=== PATIENT | male | born 1985 | race Caucasian/White ===

== ENCOUNTER 2019-01-05 01:30 | Emergency (ER) | payer BC ==
[~2019-01-05] VITALS: Ht 175.3 cm; Wt 74.8 kg
[~2019-01-05 01:30] MED LIST: LITHIUM CARBON300 M6; RISPERDAL2 MG; TRAZODONE
[2019-01-05] MEDS ORDERED: CELEXA20 MG PO (01:47)
[2019-01-05] MEDS ORDERED: VALIUM5 MG PO (01:47)
[2019-01-05] MEDS ORDERED: CELEXA40 MG PO (01:47)
[2019-01-05 02:49] LABS: CALCIUM 8.7 mg/dL (8.5-10.1); CREATININE 0.7 mg/dL (0.6-1.3)
[2019-01-05 02:57] LABS: POTASSIUM 2.9 mmol/L (3.5-5.1)
[2019-01-05] MEDS ORDERED: POTASSIUM20 PO (03:35)
[2019-01-05 03:59] VITALS: BP 152/85
--- NOTE | 2019-01-07 09:28 | EKG ---
[place] [address] ELECTROCARDIOGRAM REPORT Name: KRISTOPHERROSIE CONLEY KIKIHEDY Room: [facility]#: [id number] Admission: 01/05/19 Attend Phys: Discharge: 01/05/19 Date of : 83 Report #: [id number] THIS REPORT FOR: //name// [facility] ED Test Date: 2019-01-05 Test Time: 03:12:57 Pat Name: ROSIE SUMMERS Department: Room: Gender: M Sales Coach: : 1985 Requested By: Abebe Balderas Order Number: [id number] MD: Chris Plascencia Measurements Intervals [place] Rate: 58 P: 67 TN: 163 QRS: 51 QRSD: 120 T: 42 QT: 453 QTc: 445 Interpretive Statements Sinus rhythm Atrial premature complex Compared to ECG 12/07/2014 19:56:13 Atrial premature complex(es) now present Sinus tachycardia no longer present Electronically Signed On 01-07-2019 9:28:21 CDT by Chris Plascencia [email or web address] <ELECTRONICALLY SIGNED> By: Chris Plascencia MD, [facility] 01/07/19 0928 1 1 Chris Plascencia MD, FACC /EPI
== END 2019-01-05 04:00 | disposition home or self-care (01) ==
LOC: M.ERS 01:30
PROVIDERS: Emergency Medicine Emergency Medical Services
DX: R25.2 Cramp and spasm (principal); E86.0 Dehydration; F31.9 Bipolar disorder, unspecified; Z87.891 Personal history of nicotine dependence; Z88.2 Allergy status to sulfonamides

== ENCOUNTER 2019-11-01 13:44 | Emergency (ER) | payer BC ==
[~2019-11-01] VITALS: Ht 175.3 cm; Wt 76.2 kg
[~2019-11-01 13:44] MED LIST changes: +CELEXA20 MG PO; +CELEXA40 MG PO; +POTASSIUM20 PO; +VALIUM5 MG PO
[2019-11-01] MEDS ORDERED: MEDICAL MARIJUANA (13:59)
[2019-11-01 14:32] LABS: ABSOLUTE BASOPHILS 0.1 thou/uL (0.0-0.2); ABSOLUTE EOSINOPHILS 0.1 thou/uL (0.0-0.7); ABSOLUTE LYMPHOCYTES 2.3 thou/uL (0.8-5.3); ABSOLUTE NEUTROPHILS 5.9 thou/uL (1.6-8.1); BASOPHILS 0.5 %; EOSINOPHILS 0.6 %; HEMATOCRIT 43.9 % (42.0-52.0); HEMOGLOBIN 15.3 gm/dL (14.0-18.0); LYMPHOCYTES 24.8 %; MCHC 34.7 g/dL (28.0-37.0); MCV 89.1 fL (80.0-100.0); MONOCYTES 11.1 %; NUCLEATED RBCS 0 /100WBC; PLATELET COUNT* 216 thou/uL (150-400); RBC 4.93 mil/uL (4.50-6.00); RDW-CV 13.1 % (10.5-14.5); WBC 9.4 thou/uL (4.0-11.0)
[2019-11-01 14:39] LABS: CALCIUM 8.6 mg/dL (8.5-10.1); CREATININE 0.9 mg/dL (0.6-1.3); POTASSIUM 3.6 mmol/L (3.5-5.1)
[2019-11-01 14:43] LABS: ALBUMIN 4.2 g/dL (3.4-5.0); TOTAL BILIRUBIN 0.8 mg/dL (<0.1-1.0); TOTAL PROTEIN 8.2 g/dL (6.4-8.2)
[2019-11-01 17:06] VITALS: BP 132/88
== END 2019-11-01 17:07 | disposition home or self-care (01) ==
LOC: M.ERS 13:44
PROVIDERS: Personal Emergency Response Attendant
DX: R74.8 Abnormal levels of other serum enzymes (principal); E86.0 Dehydration; F31.9 Bipolar disorder, unspecified; Z88.2 Allergy status to sulfonamides

== ENCOUNTER 2019-11-16 09:46 | Emergency (ER) | payer BC ==
[~2019-11-16] VITALS: Ht 175.3 cm; Wt 77.1 kg
[~2019-11-16 09:46] MED LIST changes: +MEDICAL MARIJUANA
[2019-11-16] MEDS ORDERED: NORCO 5-325 TA1 EAC1 PO (10:08)
[2019-11-16 10:17] VITALS: BP 107/77
== END 2019-11-16 10:17 | disposition home or self-care (01) ==
LOC: M.ERS 09:46
DX: S61.521A Laceration with foreign body of right wrist, initial encounter (principal); S61.511A Laceration without foreign body of right wrist, initial encounter; F31.9 Bipolar disorder, unspecified; Z90.49 Acquired absence of other specified parts of digestive tract; Z98.84 Bariatric surgery status; Z88.2 Allergy status to sulfonamides; Z79.899 Other long term (current) drug therapy; W25.XXXA Contact with sharp glass, initial encounter; Y93.89 Activity, other specified; Y92.89 Other specified places as the place of occurrence of the external cause; Y99.8 Other external cause status

== ENCOUNTER 2019-12-20 12:23 | Emergency (ER) | payer BC ==
[~2019-12-20] VITALS: Ht 175.3 cm; Wt 77.1 kg
[~2019-12-20 12:23] MED LIST changes: +NORCO 5-325 TA1 EAC1 PO
[2019-12-20 13:50] LABS: ABSOLUTE BASOPHILS 0.1 thou/uL (0.0-0.2); ABSOLUTE EOSINOPHILS 0.1 thou/uL (0.0-0.7); ABSOLUTE LYMPHOCYTES 1.8 thou/uL (0.8-5.3); ABSOLUTE MONOCYTES 0.5 thou/uL (0.0-1.2); ABSOLUTE NEUTROPHILS 5.7 thou/uL (1.6-8.1); BASOPHILS 0.9 %; EOSINOPHILS 1.1 %; HEMATOCRIT 38.3 % (42.0-52.0); HEMOGLOBIN 13.3 gm/dL (14.0-18.0); LYMPHOCYTES 22.2 %; MCHC 34.7 g/dL (28.0-37.0); MCV 92.1 fL (80.0-100.0); MONOCYTES 6.4 %; MPV 8.5 fl. (7.2-11.1); NUCLEATED RBCS 0 /100WBC; PLATELET COUNT* 157 thou/uL (150-400); POLYS 69.4 %; RBC 4.16 mil/uL (4.50-6.00); RDW-CV 14.7 % (10.5-14.5); WBC 8.2 thou/uL (4.0-11.0)
[2019-12-20 13:59] LABS: APTT 26.4 Seconds (25.0-31.3); INR 1.2; PROTIME 12.6 Seconds (9.20-11.50)
[2019-12-20 14:04] LABS: CALCIUM 7.6 mg/dL (8.5-10.1); CREATININE 0.8 mg/dL (0.6-1.3); POTASSIUM 3.6 mmol/L (3.5-5.1); TOTAL BILIRUBIN 0.4 mg/dL (<0.1-1.0)
[2019-12-20] MEDS ORDERED: KEFLEX500 M1 PO (14:19)
[2019-12-20 14:31] VITALS: BP 152/94
== END 2019-12-20 14:32 | disposition home or self-care (01) ==
LOC: M.ERS 12:23
PROVIDERS: Physician Assistant
DX: S60.851A Superficial foreign body of right wrist, initial encounter (principal); F10.10 Alcohol abuse, uncomplicated; Y90.9 Presence of alcohol in blood, level not specified; Z90.49 Acquired absence of other specified parts of digestive tract; Z87.891 Personal history of nicotine dependence; Z79.899 Other long term (current) drug therapy; Z88.2 Allergy status to sulfonamides; X58.XXXA Exposure to other specified factors, initial encounter; Y93.89 Activity, other specified; Y92.89 Other specified places as the place of occurrence of the external cause; Y99.8 Other external cause status

== ENCOUNTER 2019-12-27 10:38 | Emergency (ER) | payer BC ==
[~2019-12-27] VITALS: Ht 175.3 cm; Wt 77.1 kg
[~2019-12-27 10:38] MED LIST changes: +KEFLEX500 M1 PO
[2019-12-27 11:36] LABS: ABSOLUTE BASOPHILS 0.1 thou/uL (0.0-0.2); ABSOLUTE EOSINOPHILS 0.1 thou/uL (0.0-0.7); ABSOLUTE LYMPHOCYTES 1.4 thou/uL (0.8-5.3); ABSOLUTE MONOCYTES 0.6 thou/uL (0.0-1.2); ABSOLUTE NEUTROPHILS 2.5 thou/uL (1.6-8.1); BASOPHILS 2.1 %; EOSINOPHILS 2.1 %; HEMATOCRIT 41.7 % (42.0-52.0); HEMOGLOBIN 14.3 gm/dL (14.0-18.0); LYMPHOCYTES 29.2 %; MCH 31.8 pg (26.0-34.0); MCHC 34.4 g/dL (28.0-37.0); MCV 92.6 fL (80.0-100.0); MONOCYTES 13.3 %; MPV 8.3 fl. (7.2-11.1); NUCLEATED RBCS 0 /100WBC; PLATELET COUNT* 167 thou/uL (150-400); POLYS 53.3 %; RBC 4.51 mil/uL (4.50-6.00); RDW-CV 15.2 % (10.5-14.5); WBC 4.6 thou/uL (4.0-11.0)
[2019-12-27 11:44] LABS: CALCIUM 7.9 mg/dL (8.5-10.1); CREATININE 0.7 mg/dL (0.6-1.3); POTASSIUM 3.5 mmol/L (3.5-5.1)
[2019-12-27 11:49] LABS: ALBUMIN 3.2 g/dL (3.4-5.0); TOTAL BILIRUBIN 0.6 mg/dL (<0.1-1.0); TOTAL PROTEIN 6.7 g/dL (6.4-8.2)
[2019-12-27 12:07] VITALS: BP 181/118
== END 2019-12-27 12:08 | disposition left against medical advice (07) ==
LOC: M.ERS 10:38
PROVIDERS: Personal Emergency Response Attendant
DX: E86.0 Dehydration (principal); F31.9 Bipolar disorder, unspecified; F17.210 Nicotine dependence, cigarettes, uncomplicated; Z90.49 Acquired absence of other specified parts of digestive tract; Z88.2 Allergy status to sulfonamides

== ENCOUNTER 2020-02-19 12:43 | Inpatient (IN) | payer BC ==
[~2020-02-19] VITALS: Ht 177.8 cm; Wt 83.8 kg
[2020-02-19] VITALS (8 sets, daily range): BP systolic 112–158; BP diastolic 74–103
[2020-02-19 13:57] LABS: HEMATOCRIT 41.9 % (42.0-52.0); HEMOGLOBIN 13.8 gm/dL (14.0-18.0); MCH 29.9 pg (26.0-34.0); MCHC 32.8 g/dL (28.0-37.0); MCV 91.1 fL (80.0-100.0); MPV 9.6 fl. (7.2-11.1); NUCLEATED RBCS 0 /100WBC; PLATELET COUNT* 370 thou/uL (150-400); RDW-CV 16.7 % (10.5-14.5); WBC 25.6 thou/uL (4.0-11.0)
[2020-02-19 14:00] LABS: URINE BILIRUBIN NEGATIVE (Negative); URINE BLOOD 1+ (Negative); URINE CLARITY CLEAR; URINE COLOR YELLOW; URINE GLUCOSE-RANDOM TRACE (Negative); URINE KETONES NEGATIVE (Negative); URINE LEUKOCYTES-REFLEX NEGATIVE (Negative); URINE NITRITE-REFLEX NEGATIVE (Negative); URINE PROTEIN NEGATIVE (Negative); URINE SPECIFIC GRAVITY >= 1.030 (1.005-1.030)
[2020-02-19 14:03] LABS: APTT 29.4 Seconds (25.0-31.3); CALCIUM 8.3 mg/dL (8.5-10.1); CREATININE 0.7 mg/dL (0.6-1.3); POTASSIUM 3.7 mmol/L (3.5-5.1); PROTIME 10.8 Seconds (9.20-11.50)
[2020-02-19 14:06] LABS: BACTERIA-REFLEX 1-9 Few /HPF (None Seen); SQUAMOUS 0-3 Few /LPF (0-3); URINE RBC 0-2 Rare /HPF (0-2); URINE WBC-REFLEX None Seen /HPF (0-5)
[2020-02-19 14:07] LABS: CASTS None Seen /LPF (None Seen); CRYSTALS None Seen /LPF (None Seen); MUCUS 0-3 Light strn/LPF (None Seen)
[2020-02-19 14:16] LABS: ALBUMIN 3.2 g/dL (3.4-5.0); TOTAL BILIRUBIN 0.3 mg/dL (<0.1-1.0); TOTAL PROTEIN 6.8 g/dL (6.4-8.2)
[2020-02-19 14:17] LABS: AMP/METHAMP Negative (Negative); BARBITURATES Negative (Negative); BENZODIAZEPINES POSITIVE (Negative); COCAINE Negative (Negative); METHADONE Negative (Negative); OPIATES Negative (Negative); PCP Negative (Negative); THC POSITIVE (Negative)
[2020-02-19 14:25] LABS: ALCOHOL < 10 mg/dL (<10); SALICYLATE < 2.8 mg/dL (2.8-20.0)
[2020-02-19 14:26] LABS: ACETAMINOPHEN < 2 ug/mL (10-30)
[2020-02-19 14:27] LABS: ABSOLUTE LYMPHOCYTES 1.5 thou/uL (0.8-5.3); ABSOLUTE MONOCYTES 1.5 thou/uL (0.0-1.2); ABSOLUTE NEUTROPHILS 22.5 thou/uL (1.6-8.1); HYPOCHROMASIA 1+; PLATELET ESTIMATE ADEQUATE
--- NOTE | 2020-02-19 17:01 | EKG ---
[place] [address] ELECTROCARDIOGRAM REPORT Name: KRISTOPHERROSIE YAEL CORDOBA Room: [address] ADM IN M.R.#: [id number] Admission: 02/19/20 Attend Phys: Conrado Negrete Discharge: Date of : 83 Date of Service: 02/19/20 1331 Report #: [id number] THIS REPORT FOR: //name// [facility] ED Test Date: 2020-02-19 Test Time: 13:31:41 Pat Name: ROSIE SUMMERS Department: Room: [facility] Gender: M Urogynecology Physician: MENDEZ : 1985 Requested By: Abebe Balderas Order Number: [id number] MD: Chris Plascencia Measurements Intervals [place] Rate: 109 P: 70 TN: 143 QRS: 24 QRSD: 99 T: 24 QT: 343 QTc: 463 Interpretive Statements Sinus tachycardia Consider right atrial enlargement Probable left ventricular hypertrophy Compared to ECG 01/05/2019 03:12:57 Sinus rhythm no longer present Atrial premature complex(es) no longer present Electronically Signed On 02-19-2020 17:01:28 CDT by Chris Plascencia [email or web address] <ELECTRONICALLY SIGNED> By: Chris Plascencia MD, FAC 02/19/20 1701 1331 1331 Chris Plascencia MD, FAC /EPI
[2020-02-19 17:03] LABS: BE -1.1 mmol/L (-2 to +3); PCO2 41.7 mmHg (35.0-45.0); PO2 68.5 mmHg (75.0-100.0); pH 7.379 (7.340-7.450)
[2020-02-19] MEDS ORDERED: SEROQUEL200 MG PO (18:10)
[2020-02-20] VITALS (40 sets, daily range): BP systolic 94–145; BP diastolic 57–90
[2020-02-20 04:12] LABS: ABSOLUTE EOSINOPHILS 0.1 thou/uL (0.0-0.7); ABSOLUTE LYMPHOCYTES 1.3 thou/uL (0.8-5.3); ABSOLUTE NEUTROPHILS 12.9 thou/uL (1.6-8.1); BASOPHILS 0.1 %; EOSINOPHILS 0.7 %; HEMATOCRIT 40.6 % (42.0-52.0); HEMOGLOBIN 13.4 gm/dL (14.0-18.0); LYMPHOCYTES 8.3 %; MCH 30.1 pg (26.0-34.0); MCHC 33.1 g/dL (28.0-37.0); MCV 90.9 fL (80.0-100.0); MONOCYTES 6.6 %; MPV 9.8 fl. (7.2-11.1); NUCLEATED RBCS 0 /100WBC; PLATELET COUNT* 333 thou/uL (150-400); POLYS 84.3 %; RBC 4.46 mil/uL (4.50-6.00); RDW-CV 16.7 % (10.5-14.5); WBC 15.3 thou/uL (4.0-11.0)
[2020-02-20 04:25] LABS: PHOSPHORUS* 3.5 mg/dL (2.5-4.9)
[2020-02-20 04:28] LABS: ALBUMIN 2.6 g/dL (3.4-5.0); CALCIUM 8.3 mg/dL (8.5-10.1); CREATININE 0.6 mg/dL (0.6-1.3); MAGNESIUM 2.2 mg/dL (1.8-2.4); TOTAL BILIRUBIN 0.3 mg/dL (<0.1-1.0); TOTAL PROTEIN 5.6 g/dL (6.4-8.2)
--- NOTE | 2020-02-20 06:31 | NUR ---
VITALS STABLE, AFEBRILE. PT REMAINS ON PROPOFOL AND FENTANYL GTT. 1300CC UOP, NO BM. FIO2 TITRATED DOWN TO 40% PER RT. LARGE AMOUNTS OF DIGESTED FOOD FROM MOUTH WELL SOME FROM ET TUBE SUCTIONED. OTHERWISE UNEVENTFUL NIGHT. Q2 TURNS FOR SKIN INTEGRITY.
[2020-02-20 09:28] LABS: BE 0.2 mmol/L (-2 to +3); PCO2 41.7 mmHg (35.0-45.0); PO2 91.3 mmHg (75.0-100.0); pH 7.398 (7.340-7.450)
[2020-02-20 09:37] LABS: CALCIUM 7.8 mg/dL (8.5-10.1); CREATININE 0.6 mg/dL (0.6-1.3); MAGNESIUM 1.9 mg/dL (1.8-2.4); POTASSIUM 3.5 mmol/L (3.5-5.1)
--- NOTE | 2020-02-20 10:30 | NUR ---
WOUND NURSE: PATIENT SEEN TO ADDRESS CONTUSION ON LEFT CHEEK: PRESENTS A SMALL CONTUSION MEASURING 1.0 X 2.0 CM CONTAINS AN INTACT THIN DRY BLACKENED SCAB. THERE IS MINIMAL PERIWOUND REDNESS, NO WARMTH, OR DRAINAGE. RECOMMEND TO KEEP OPEN TO AIR. LEFT LATERAL HIP PRESENTS WITH LOCALIZED PERIWOUND REDNESS, MINIMAL WARMTH, NO INDURATION. SUPERFICIAL ERODED BLISTERING WITH SMALL SEROUS DRAINAGE. MEASURES 6.0 X 3.0 X 0.1 CM, CONTAINS PINK, NONGRANULATING TISSUE IN THE WOUND BED. CLEANSED WITH SOAP AND WATER, RINSED WITH WATER, THEN PATTED DRY. APPLIED OPTIFOAM GENTLE AG TO THE WOUND BED. PLAN TO CHANGE THE DRESSING EVERY 3 TO 5 DAYS AND PRN UNTIL HEALED.
--- NOTE | 2020-02-20 13:04 | CON ---
[address] [address] CONSULTATION Name: ROSIE SUMMERS Room: [address] IN M.R.#: [id number] Admission: 02/19/20 Attend Phys: Padma Humphreys Discharge: Date of : 83 Report #: [id number] THIS REPORT FOR: //name// cc: PAKO Ray family physician/PCP PAKO - Flor family physician/PCP ~ THIS REPORT FOR: //name// CC: PAKO physician/PCP Conrado Negrete DATE OF SERVICE: 02/20/2020 Consult has been requested by Dr. Negrete. INDICATION FOR CONSULTATION: Acute respiratory failure. HISTORY OF PRESENT ILLNESS: A 34-year-old gentleman with past medical history includes a history of bipolar disorder. The patient also has a history of active smoking as well as heavy alcohol intake. The patient is now here after ingesting medications that are prescribed to him with suicidal intent. Full details of the medications the patient took are not known at this time. He is reported to have taken some sleeping pills and ingested Seroquel as well as sodium valproate. The patient is noted to be positive for benzodiazepines as well as marijuana on admission. It is not, however, known to me as to whether the patient had already been administered a benzodiazepine prior to these levels being obtained. The patient is reported to be unresponsive and having slurred speech on initial evaluation and therefore required endotracheal intubation due to being unresponsive and requiring airway protection. The patient's chest x-ray and CAT scan findings are also consistent with aspiration pneumonia in the left lung. The history of vomiting and aspiration is not available, but his imaging is highly consistent with this. The patient also has elevated CPK consistent with rhabdomyolysis. The patient, however, has a normal renal function. Yesterday, the patient was started on a propofol infusion. However, he was not adequately sedated with this and therefore we added a fentanyl infusion. The patient currently is hemodynamically stable and is ventilating and oxygenating adequately. The patient is reported to have had injury to the left hip; however, there is no obvious fracture on his x-rays overnight. We kept the patient well hydrated with Ringer's lactate. The patient has had a good urine output. The patient is on the ventilator and therefore is unable to provide a further history or review of systems. The patient's mother, however, was at bedside and provided history as above. History was also obtained from the chart. PAST MEDICAL HISTORY: Anxiety, depression, [place] [address] CONSULTATION Name: ROSIE SUMMERS KIKIHEDY Room: [address] IN [facility]#: [id number] Admission: 02/19/20 Attend Phys: Padma Humphreys Discharge: Date of : 83 Report #: [id number] patient has had a gastric bypass in the past, body mass index now is 26.3, bowel perforation, cholecystectomy, hypokalemia. There is no documented history of cardiac or respiratory disease in the past. SOCIAL HISTORY: Heavy alcohol intake. The patient's mother states that he takes hard liquor in large quantities; however, she is not aware of any intake in the last 2 days. The patient also has been using marijuana. He is an active smoker, unable to quantify how much he smokes exactly. The patient is not known to have any other illegal drug use. However, it is noted that he does take a prescribed benzodiazepine. CURRENT MEDICATIONS: List in [facility] reviewed. HOME MEDICATIONS: Celexa, diazepam and Seroquel is reported as home medications. There was also suspicion of the patient having ingested sodium valproate, details regarding why it was suspected that the patient may have had access to it are not known to me. ALLERGIES: SULFONAMIDE ANTIBIOTICS. FAMILY HISTORY: There is no pertinent family history. PHYSICAL EXAMINATION: GENERAL: The patient is on a propofol as well as fentanyl infusion. He is sedated to around VAS -2 to -3. He is ventilating and oxygenating adequately with a tidal volume of 450 and AC rate set at 16, FiO2 is 40%, PEEP is 5. He is not overbreathing the ventilator at this time. He is oxygenating 99%.: Has a pulse of 97 and a blood pressure of 116/76. His temperature is 37.0, which is his T-max. HEENT: Head is normocephalic and there is a minor bruising over the left side of his head. Pupils are constricted and poorly reactive, but this is what I would expect considering that he is on a fentanyl infusion, endotracheal and OG are in place in good position. NECK: Does not show raised JVP, asymmetry, mass or lymph nodes. CHEST: Symmetrical expansion on inspection and palpation. On auscultation, chest is clear. HEART: Regular. There is no murmur. ABDOMEN: Soft and nontender. EXTREMITIES: Lower extremities show no edema. There is no calf tenderness. I do not see any obvious abnormalities in his left hip when examining. From the front, I am told that there are abnormal findings in his left hip on exam from behind. X-rays are as discussed. NEUROLOGICAL: Limited due to sedation. I did not however detect any focal deficit. He does move all extremities to pain. SKIN: Dry and intact. [address] [place] [address] CONSULTATION Name: ROSIE SUMMERS Room: [address] IN ..#: [id number] Admission: 02/19/20 Attend Phys: Padma Humphreys Discharge: Date of : 83 Report #: [id number] LABORATORY DATA: The patient's chest x-rays are reviewed. I also obtained a CTA chest after reviewing the chest x-ray yesterday. In summary, there are infiltrates in the left lung, which are consistent with aspiration pneumonia when correlated with his previous history. X-ray of the left hip/femur, CT head as well as a CT C-spine also in [facility] reviewed. Arterial blood gases in [facility] reviewed. CBC, which does show significant bandemia in [facility] reviewed. Coagulation studies in [facility] reviewed. Urine drug screen as well as valproate, Tylenol and salicylate levels are in [facility] reviewed. His COVID-19 screen is negative. MRSA PCR is pending. I do not have an alcohol level. Markedly elevated CPK levels trending downwards reviewed. ASSESSMENT AND PLAN: 1. Acute respiratory failure. I will plan to keep him on the ventilator today. We will continue fentanyl. We will titrate down propofol. We will start Precedex if all goes well and I plan to attempt to extubate him tomorrow morning. 2. Aspiration pneumonia. The patient's history when correlated with chest x-rays and CT findings are highly suggestive of aspiration pneumonia. I would continue Zosyn for now. We will plan to discontinue vancomycin and Zithromax tomorrow if he continues to improve. We will see if we can get a sputum culture. We will plan to later switch Zosyn to Augmentin p.o. when he is off the ventilator. 3. Rhabdomyolysis. Note that his CPKs are trending downwards. His renal function is normal. We will favor keeping him well hydrated. Dr. Brooks is also on the case. 4. History of heavy alcohol intake. I did find the patient's alcohol level on admission and found to be less than 10. I did order thiamine and folate. 5. Active smoker. He is on albuterol while on the ventilator, may benefit from smoking cessation counseling and further evaluation regarding possible underlying obstructive lung disease later. 6. Deep vein thrombosis prophylaxis. We will start Lovenox. 7. Gastrointestinal prophylaxis. He is on Protonix. The patient is critically ill at this time. Total time spent providing critical care to this patient today exceeds 42 minutes. <ELECTRONICALLY SIGNED> By: Chirag Huntley MD 02/20/20 1304 1031 1122Alupe Huntley MD /nt
--- NOTE | 2020-02-20 14:19 | NUR ---
Nutrition: Pt admitted after SI, OD. Spoke with RN; he is now extubated, asking for water. Hopeful for good diet tolerance. Assessed for wound. casino cage cashier saw pt. Labs: BG WNL, alb 2.6, WBC 15.3. H/o ETOH, bipolar. He had been intubated just as airway precaution. No nutrition interventions needed at this time. Mild risk.
--- NOTE | 2020-02-20 15:19 | NUR ---
ICU rounds: SI attempt. Exutubated today. Pt normally independent. Living with mom while going through a divorce. Pt states that he did not try to harm himself, anticipate Pt will likely need inpt psych at pr. Anticipate tele psych consult.
--- NOTE | 2020-02-20 15:50 | 2DMMODE ---
[place] [address] 2 D/M-MODE ECHOCARDIOGRAM Name: ROSIE SUMMERS KIKIHEDY Room: [address] ADM IN M.R.#: [id number] Admission: 02/19/20 Attend Phys: Conrado Negrete Discharge: Date of : 83 Date of Service: 02/20/20 1549 Report #: [id number] THIS REPORT FOR: cc: FAM - No family physician/PCP FAM - No family physician/PCP Donavan Cardoza MD [facility] ~ APPROVED REPORT Study performed: 02/20/2020 10:33:04 EXAM: Comprehensive 2D, Doppler, and color-flow Echocardiogram BSA: 1.87 HR: 98 bpm BP: 126/86 mmHg Other Information Study Quality: Technically Limited Technically limited study due to inability to position patient. Indications Dyspnea 2D Dimensions IVSd: 9.77 (7-11mm) LVOT Diam: 19.78 (18-24mm) LVDd: 41.78 mm PWd: 13.74 (7-11mm) Ascending Ao: 31.40 (22-36mm) LVDs: 34.44 (25-40mm) Aortic Root: 24.29 mm Volumes Left Atrial Volume (Systole) LA ESV Index: 13.90 mL/m2 Aortic Valve AoV Peak Marcel.: 0.95 m/s AO Peak Gr.: 3.64 mmHg LVOT Max P.00 mmHg AO Mean Gr.: 2.22 mmHg LVOT Mean P.79 mmHg LVOT Max V: 0.87 m/s AO V2 VTI: 13.49 cm LVOT Mean V: 0.64 m/s PARVEEN (VTI): 4.33 cm2 LVOT V1 VTI: 19.01 [place] [address] 2 D/M-MODE ECHOCARDIOGRAM Name: ROSIE SUMMERS [facility] Room: [address] IN .R.#: [id number] Admission: 02/19/20 Attend Phys: Conrado Negrete Discharge: Date of : 83 Date of Service: 02/20/20 1549 Report #: [id number] E/A Ratio: 2.54 MV Decel. Time: 91.72 ms MV E Max Marcel.: 0.85 m/s MV PHT: 26.60 ms MVA (PHT): 8.27 cm2 TDI E/Lateral E': 7.08 E/Medial E': 7.08 Medial E' Marcel.: 0.12 m/s Lateral E' Marcel.: 0.12 m/s Pulmonary Valve PV Peak Marcel.: 0.90 m/s PV Peak Gr.: 3.24 mmHg Left Ventricle The left ventricle is normal size. endocardium not well visualized There is normal left ventricular wall thickness. Left ventricular systolic function is normal. The left ventricular ejection fraction is within the normal range. LVEF is 50-55%. Right Ventricle The right ventricle is normal size. The right ventricular systolic function is normal. Atria The left atrium size is normal. The right atrium size is normal. Aortic Valve The aortic valve is not well visualized. No aortic regurgitation is present. There is no aortic valvular stenosis. Mitral Valve The mitral valve is normal in structure. There is no mitral valve regurgitation noted. No evidence of mitral valve stenosis. Tricuspid Valve The tricuspid valve is normal in structure. There is no tricuspid valve regurgitation noted. Pulmonic Valve Pulmonic valve is not well visualized. There is no pulmonic valvular regurgitation. Great Vessels The aortic root is normal in size. IVC [place] [address] 2 D/M-MODE ECHOCARDIOGRAM Name: ROSIE SUMMERS KIKIHEDY Room: [address] IN [facility]#: [id number] Admission: 02/19/20 Attend Phys: Conrado Negrete Discharge: Date of : 83 Date of Service: 02/20/20 1549 Report #: [id number] collapses >50% with inspiration. Pericardium There is no pericardial effusion. <Conclusion> Left ventricular systolic function is normal. The left ventricular ejection fraction is within the normal range. <ELECTRONICALLY SIGNED> By: Donavan Cardoza MD, [facility] 02/20/20 1549 1549 1549 Donavan Cardoza MD, FAC /INF
--- NOTE | 2020-02-20 19:32 | NUR ---
ASSESSMENT CHARTED. VSS. 1:1 SI DC'D PER PSYCH RECOMMENDATION-THIS INFORMATION WAS GIVEN TO ON-CALL MD. EXTUBATED AT 1415 WITHOUT COMPLICATION. NO COMPLAINTS OF PAIN. PATIENT PASSED BEDSIDE SWALLOW. NO OTHER EVENTS DURING THIS SHIFT. WILL CONTINUE TO MONITOR.
[2020-02-21] VITALS (13 sets, daily range): BP systolic 109–139; BP diastolic 67–85
--- NOTE | 2020-02-21 07:25 | NUR ---
ASSUMED PATIENT CARE AT 1900. ASSESSMENTS COMPLETED CHARTED. CARDIAC MONITORING IN PLACE. FALL PRECAUTIONS IN PLACE FOR PATIENT SAFETY. BED LOCKED AND IN LOWEST POSITION. CLWR. NO BOWEL MOVEMENT DURING SHIFT.
--- NOTE | 2020-02-21 10:28 | NUR ---
PATIENT LEFT AMA AT 1020.
== END 2020-02-21 10:20 | disposition left against medical advice (07) | DRG 917 ==
LOC: M.ERS 12:43 → M.ICU 14:12 → M.TBA-ER 14:12 → M.ICU 15:44
PROVIDERS: Emergency Medicine Emergency Medical Services; Internal Medicine Critical Care Medicine; ADMIT Internal Medicine; ATTEND Internal Medicine
DX: T43.591A Poisoning by other antipsychotics and neuroleptics, accidental (unintentional), initial encounter (principal); J69.0 Pneumonitis due to inhalation of food and vomit; G93.41 Metabolic encephalopathy; J96.00 Acute respiratory failure, unspecified whether with hypoxia or hypercapnia; R45.851 Suicidal ideations; M62.82 Rhabdomyolysis; T43.221A Poisoning by selective serotonin reuptake inhibitors, accidental (unintentional), initial encounter; F10.20 Alcohol dependence, uncomplicated; I10 Essential (primary) hypertension; F12.90 Cannabis use, unspecified, uncomplicated; Z53.29 Procedure and treatment not carried out because of patient's decision for other reasons; Y92.89 Other specified places as the place of occurrence of the external cause; Z90.49 Acquired absence of other specified parts of digestive tract; Z88.2 Allergy status to sulfonamides; Z87.891 Personal history of nicotine dependence